=== PATIENT | male | born 1945 | race Caucasian/White ===

== ENCOUNTER 2017-01-24 10:02 | Emergency (ER) | payer BC, MEDICARE ==
--- OUTSIDE RECORDS SUMMARY | 2017-01-24 10:04 | XMS | Clinical Summary ---
:1945 Author Organization [facility] Address [address] [place] [address] Phone Care Team Providers Name Role Phone , Primary Care Provider Unavailable Allergies Not on File Current Medications Not on file Active Problems Not on file Social History Tobacco Use Types Packs/Day Years Used Date Never Assessed Sex Assigned at Date Recorded Not on file Last Filed Vital Signs Not on file Plan of Treatment Not on file Results Not on filefrom Last 3 Months
[2017-01-24 12:40] LABS: #Eosinphils 0.1 thou/uL (0.0-0.7); #Lymphocytes 0.8 thou/uL (1.20-3.40); #Monocytes 0.4 thou/uL (0.11-0.59); %Basophils 0.4 % (0.0-1.0); %Eosinophils 0.9 % (0.0-10.0); %Lymphocytes 11.3 % (21.0-51.0); %Monocytes 5.2 % (0.0-10.0); Hematocrit 42.1 % (42.0-52.0); Mean Platelet Volume 6.9 fL (7.4-10.4); Red Blood Cell (RBC) Count 4.21 mill/uL (4.70-6.10); White Blood Cell (WBC) Count 7.3 thou/uL (4.8-10.8)
[2017-01-24 12:58] LABS: Anion Gap 11 mmol/L (10-20); BUN (Urea Nitrogen) 11 mg/dL (8.4-25.7); Calc. Creatinine Clearance 0 mL/min (70-130); Calcium 9.3 mg/dL (7.8-10.44); Carbon Dioxide 30 mmol/L (23-31); Chloride 101 mmol/L (98-107); Estimated GFR-MDRD Greater than 90
== END 2017-01-24 13:30 | disposition home or self-care (01) ==
LOC: ERS 10:02
DX: G97.1 Other reaction to spinal and lumbar puncture (principal)
CPT/HCPCS: 36415; 80048; 85025; 99284

== ENCOUNTER 2017-09-20 07:13 | Outpatient (CLI) | payer BC ==
--- NOTE | 2017-09-22 14:57 | EEG ---
Referring Physician: DR. SIN TANNER/ DR. WELLS EEG # [id number] TEST TYPE: EXTENDED 2 1/2 HOUR EEG WITH T1 AND T2 LEADS REPORT: AN EEG USING THE [employer]NATIONAL TEN-TWENTY SYSTEM OF ELECTRODE PLACEMENT WAS PERFORMED. The waking background was a 9 hertz alpha frequency. The patient became drowsy during the study, but no stage II sleep was seen. Photic stimulation was unremarkable. Hyperventilation was unremarkable. No epileptiform features were present. IMPRESSION: NORMAL AWAKE AND DROWSY EEG RECORDED FOR 2 1/2 HOURS Brush Holder Inspector: REGGIE Wirer Street Light: [id number]
== END 2017-09-20 07:14 | disposition home or self-care (01) ==
LOC: EEG 07:13
DX: R41.3 Other amnesia (principal); R41.89 Other symptoms and signs involving cognitive functions and awareness
CPT/HCPCS: 95816